=== PATIENT | female | born 1990 | race Caucasian/White ===

== ENCOUNTER → 2018-01-15 | Outpatient (CLI) | payer OTHER ==
[~2018-01-15] MED LIST: AMIT25 PO; AMIT75; AMOCLA500 PO; ARIP10 PO; CEPH500 PO; CHOL10002 PO; CIPR500 PO; CODGUAEL PO; Cleocin HCl150 MG PO; Cough Syru100 MG/5 M PO; ESTNOR PO; Esgic Tablet1 EACH PO; Estradiol0.5 MG PO; HYDACE5 PO; IBUP400 PO; IBUP800; IBUP800 PO; LORA10 PO; MEDR5 PO; METO25ER PO; METPRE4DP PO; Maxalt Mlt5 MG SL; Mobic7.5 MG PO; NAPR500 PO; NEOPOLHCSU OT; PARO20 PO; PENVK500 PO; PHENA100 PO; PRAZ1 PO; PROM25 PO; Pyridium100 MG PO; Pyridium200 MG PO; RXTRAM50 PO; SULTRIDS PO; TOPI100 PO; TRAM50 PO; VENL25 PO; Zofran Odt4 MG PO; Zofran Odt4 MG SL
[2018-01-16 01:31] LABS: Source VAG/CERVIX
== END | disposition home or self-care (01) ==
LOC: LAB 10:27
PROVIDERS: Obstetrics & Gynecology
DX: Z01.419 Encounter for gynecological examination (general) (routine) without abnormal findings (principal)
CPT/HCPCS: G0123

== ENCOUNTER → 2020-02-15 | Outpatient (CLI) | payer OTHER ==
[2020-02-17 14:08] LABS: HPV 16 Negative (Negative); HPV 18 Negative (Negative); HPV OTHER HR TYPES Negative (Negative)
== END | disposition home or self-care (01) ==
LOC: LAB 10:45 → LAB SHORT 10:45
PROVIDERS: Obstetrics & Gynecology
DX: Z01.419 Encounter for gynecological examination (general) (routine) without abnormal findings (principal)
CPT/HCPCS: 87624; G0123

== ENCOUNTER → 2021-12-03 | Outpatient (CLI) | payer OTHER ==
[2021-12-03 14:32] LABS: Source, Urine Clean Catch
[2021-12-03 15:08] LABS: Appearance, Urine Clear (Clear); Bilirubin, Urine Neg (Neg); Blood, Urine 2+ (Neg); Color, Urine Yellow (P-Yellow); Glucose Qualitative, Urine Neg (Neg); Ketones, Urine Neg (Neg); Leukocyte Esterase, Urine 1+ (Neg); Nitrite, Urine Neg (Neg); Protein, Urine Neg (Neg); Urobilinogen, Urine NORM (Normal)
[2021-12-03 15:20] LABS: Bacteria Mod /hpf; Squamous Epithelial Cells Few /hpf (Few)
== END | disposition home or self-care (01) ==
LOC: LAB SHORT 13:53
PROVIDERS: Obstetrics & Gynecology
DX: R35.0 Frequency of micturition (principal)
CPT/HCPCS: 81001; 87077; 87086; 87186

== ENCOUNTER 2022-11-10 18:11 | Inpatient (IN) | payer OTHER ==
[~2022-11-10] VITALS: Ht 162.6 cm; Wt 118.9 kg
[~2022-11-10 18:11] MED LIST changes: -VENL25 PO; +VENL75ER PO
[2022-11-10 18:53] LABS: BASOPHILS ABSOLUTE AUTO 0.05 K/mm3 (0.00-0.23); BASOPHILS PERCENT AUTO 0 % (0-2); EOSINOPHILS ABSOLUTE AUTO 0.01 K/mm3 (0.00-0.68); EOSINOPHILS PERCENT AUTO 0 % (0-6); Hematocrit 38.6 % (33.0-51.0); Hemoglobin 12.9 g/dL (11.5-16.0); IMMATURE GRAN ABSOLUTE AUTO 0.17 K/mm3 (0.00-0.10); IMMATURE GRAN PERCENT AUTO 1 % (0-1); LYMPHOCYTES ABSOLUTE AUTO 1.21 K/mm3 (0.84-5.20); LYMPHOCYTES PERCENT AUTO 6 % (21-46); MONOCYTES ABSOLUTE AUTO 0.88 K/mm3 (0.16-1.47); MONOCYTES PERCENT AUTO 4 % (4-13); Mean Corpuscular HGB 27.4 pg (26.0-34.0); Mean Corpuscular HGB Conc 33.4 g/dL (31.5-36.5); Mean Corpuscular Volume 82 fL (80-100); Mean Platelet Volume 9.4 fL (9.1-12.4); NEUTROPHILS ABSOLUTE AUTO 19.82 K/mm3 (1.96-9.15); NEUTROPHILS PERCENT AUTO 90 % (41-73); Platelet Count 274 K/mm3 (150-400); RDW Coefficient Variation 13.5 % (11.7-14.2); RDW Standard Deviation 40.6 fL (35.1-46.3); White Blood Cell Count 22.14 K/mm3 (4.00-11.30)
[2022-11-10 19:06] LABS: Albumin, Blood 2.8 g/dL (3.4-5.0); Albumin/Globulin Ratio 0.6 (0.8-1.8); Bilirubin, Total 1.2 mg/dL (0.1-1.0); Bun/Creatinine Ratio 12.3 (12.0-20.0); Calcium, Blood 8.6 mg/dL (8.5-10.1); Creatinine, Blood 0.65 mg/dL (0.40-1.00); Globulin, Blood 4.8 g/dL (2.2-4.0); Potassium, Blood 3.8 mmol/L (3.5-5.5); Total Protein, Blood 7.6 g/dL (6.4-8.2)
--- NOTE | 2022-11-11 02:02 | NUR ---
CARE ASSUMPTION: PATIENT ARRIVED BY GURNEY AND WAS SLID TO PCU BED WITH 5 STAFF ASSIST. PATIENT CANNOT BEAR WEIGHT ON BLE WITHOUT PAIN. PATIENT STATED SHE HAD TO URINATE UPON ADMIT - BEDPAN PROVIDED. PATIENT'S VS WNL. DENIES SOB/CHEST PAIN/N/V/D. STATES SHE HAS BEEN TOO TIRED TO EAT THE LAST COUPLE DAYS. FLUIDS RUNNING PER EMAR. ADMISSION HX AND ASSESSMENT COMPLETE. PATIENT LIVES ALONE AND HAS BEEN SELF-TREATING LEG ULCERS AT HOME FOR >2 MONTHS. PRESENTS WITH MILD COGNITIVE DELAY AND POOR HYGIENE - SS CONSULT ORDERED. MOTHER NOT PRESENT ON ADMIT, BUT PATIENT STATES SHE LIVES IN AREA AND IS THE ONE WHO BROUGHT HER TO ED. BLE RAISED, BED LOW, CALL LIGHT IN REACH.
--- NOTE | 2022-11-11 05:36 | NUR ---
SHIFT SUMMARY: PATIENT SYS BP 90-110S, MAP >65, AFEBRILE. DENIES SOB/N/V/D. WOUNDS CLEANSED AND OPEN TO AIR - WOUND CONSULT ORDERED. PLEASANT AND COOPERATIVE WITH CARE. NEEDS FREQUENT EDUCATION R/T PERSONAL CARE, CALL LIGHT, AND UNIT PROTOCOL. CONTINENT-INCONTINENT. PROVIDED BED BATH AND LINEN CHANGE THIS AM - PATIENT CAN ASSIST WITH REPOSITIONING THOUGH IT IS UNCOMFORTABLE FOR HER. MEDICATED PER EMAR. NO ADVERSE EVENTS THIS SHIFT. BED LOW WITH CALL LIGHT IN REACH. WILL CONTINUE TO MONITOR UNTIL REPORT TO DAY RN.
[2022-11-11 06:07] LABS: BASOPHILS ABSOLUTE AUTO 0.03 K/mm3 (0.00-0.23); BASOPHILS PERCENT AUTO 0 % (0-2); EOSINOPHILS ABSOLUTE AUTO 0.03 K/mm3 (0.00-0.68); EOSINOPHILS PERCENT AUTO 0 % (0-6); Hematocrit 36.9 % (33.0-51.0); Hemoglobin 11.9 g/dL (11.5-16.0); IMMATURE GRAN ABSOLUTE AUTO 0.08 K/mm3 (0.00-0.10); IMMATURE GRAN PERCENT AUTO 1 % (0-1); LYMPHOCYTES ABSOLUTE AUTO 0.78 K/mm3 (0.84-5.20); LYMPHOCYTES PERCENT AUTO 5 % (21-46); MONOCYTES ABSOLUTE AUTO 0.89 K/mm3 (0.16-1.47); MONOCYTES PERCENT AUTO 6 % (4-13); Mean Corpuscular HGB 27.1 pg (26.0-34.0); Mean Corpuscular HGB Conc 32.2 g/dL (31.5-36.5); Mean Corpuscular Volume 84 fL (80-100); Mean Platelet Volume 9.3 fL (9.1-12.4); NEUTROPHILS ABSOLUTE AUTO 12.83 K/mm3 (1.96-9.15); NEUTROPHILS PERCENT AUTO 88 % (41-73); Platelet Count 221 K/mm3 (150-400); RDW Coefficient Variation 13.6 % (11.7-14.2); RDW Standard Deviation 42.6 fL (35.1-46.3); Red Blood Cell Count 4.39 M/mm3 (3.80-5.20); White Blood Cell Count 14.64 K/mm3 (4.00-11.30)
[2022-11-11 06:44] LABS: Albumin, Blood 2.4 g/dL (3.4-5.0); Albumin/Globulin Ratio 0.6 (0.8-1.8); Bilirubin, Total 1.2 mg/dL (0.1-1.0); Bun/Creatinine Ratio 12.7 (12.0-20.0); Calcium, Blood 8.4 mg/dL (8.5-10.1); Creatinine, Blood 0.63 mg/dL (0.40-1.00); Globulin, Blood 4.2 g/dL (2.2-4.0); Potassium, Blood 3.4 mmol/L (3.5-5.5); Total Protein, Blood 6.6 g/dL (6.4-8.2)
--- NOTE | 2022-11-11 10:31 | NUR ---
WOUND CARE WOUND PHOTOS AND ASSESSMENT IN HARD CHART. WOUND CARE ORDERS IN [facility]. PT WOULD BENEFIT FROM FOLLOW UP AT OR WITH HH ON DISCHARGE FOR RLE WOUND
[2022-11-11 16:16] LABS: Source, Urine Clean Catch
[2022-11-11 16:51] LABS: Appearance, Urine Cloudy (Clear); Blood, Urine 1+ (Neg); Color, Urine Yellow (P-Yellow); Glucose Qualitative, Urine Neg (Neg); Ketones, Urine Neg (Neg); Leukocyte Esterase, Urine 1+ (Neg); Nitrite, Urine Neg (Neg); Protein, Urine 2+ (Neg); Urobilinogen, Urine 4+ (Normal)
[2022-11-11 17:03] LABS: Bilirubin, Urine 1+ (Neg)
[2022-11-11 17:10] LABS: Red Blood Cells, Urine 0-2 /hpf (0-2)
[2022-11-11 17:11] LABS: Bacteria Many /hpf; Other Crystals Many /hpf; Squamous Epithelial Cells Few /hpf (Few); Transitional Epithelial Cells Rare /hpf (0-Rare)
--- NOTE | 2022-11-11 18:47 | NUR ---
ASSUMED CARE OF PT AT 0700 TODAY. SILK WASHING MACHINE OPERATOR AT BEDSIDE TO EVALUATE BLEs, ORDERS PLACED IN CHART FOR WOUND CARE. PT HAS BEEN ALERT AND ORIENTED, ALTHOUGH MENTATION SEEMS DELAYED, FAMILY AT BEDSIDE STATES SHE IS AT BASELINE. SEE DOCUMENTED VS AND ASSESSMENT. NO CHANGES NOTED T/O THE SHIFT TO PT'S CONDITION. UA SENT TO LAB PER MD ORDERS. PT IS ABLE TO USE CALL LIGHT FOR NEEDS, CALL LIGHT IN REACH AT THIS TIME. WILL CONTINUE TO MONITOR AND GIVE REPORT TO NOC SHIFT RN.
[2022-11-11 21:51] LABS: Vancomycin, Trough 13.9 ug/mL (5.0-10.0)
--- NOTE | 2022-11-11 22:03 | NUR ---
CARE ASSUMPTION: PATIENT ASLEEP AT START OF SHIFT, TEMP 100.1*F, TACHYCARDIC AND TACHYPENIC, BP WNL, O2 >95% ON RA. PATIENT REMEBERED THIS RN FROM PREVIOUS NOC SHIFT. USES CALL LIGHT APPROPRIATELY. MEDICATED PER EMAR. BED LOW WITH CALL LIGHT IN REACH.
[2022-11-12 04:07] LABS: Hematocrit 34.9 % (33.0-51.0); Hemoglobin 11.4 g/dL (11.5-16.0); Mean Corpuscular HGB 27.4 pg (26.0-34.0); Mean Corpuscular HGB Conc 32.7 g/dL (31.5-36.5); Mean Corpuscular Volume 84 fL (80-100); Mean Platelet Volume 9.6 fL (9.1-12.4); Platelet Count 219 K/mm3 (150-400); RDW Coefficient Variation 13.8 % (11.7-14.2); RDW Standard Deviation 42.6 fL (35.1-46.3); Red Blood Cell Count 4.16 M/mm3 (3.80-5.20); White Blood Cell Count 11.42 K/mm3 (4.00-11.30)
[2022-11-12 04:27] LABS: Anion Gap 6 mmol/L (6-16); Blood Urea Nitrogen 7 mg/dL (8-24); Bun/Creatinine Ratio 12.6 (12.0-20.0); CO2, Blood 26 mmol/L (21-32); Calcium, Blood 8.4 mg/dL (8.5-10.1); Chloride, Blood 106 mmol/L (98-108); Creatinine, Blood 0.56 mg/dL (0.40-1.00); Glomerular Filtration Rate 124 (60-); Glucose, Blood 119 mg/dL (70-99); Phosphorus, Blood 2.9 mg/dL (2.5-4.9); Sodium, Blood 138 mmol/L (136-145)
--- NOTE | 2022-11-12 07:14 | NUR ---
SHIFT SUMMARY: PATIENT VS WNL, DENIES SOB/CHEST PAIN/N/V, USES CALL LIGHT INTERMITTENTLY. CONTINENT/INCONTINENT - LINEN CHANGE X1 THIS SHIFT. PLEASANT AND COOPERATIVE WITH CARE. MEDICATED PER EMAR. BED LOW WITH CALL LIGHT IN REACH. REPORT GIVEN TO DAY RN.
--- NOTE | 2022-11-12 10:14 | NUR ---
MEDICATION REC. NOTE SEE EMAR FOR MEDICATIONS D/C'D TODAY. MEDICATIONS D/C'D DUE TO PT REPORTING THAT SHE NO LONGER TAKES MEDICATIONS AT HOME, THIS NURSE SPOKE W/ DR. CHIN AND DR. OSEGUERA TO D/C MEDS.
--- NOTE | 2022-11-12 12:09 | NUR ---
CARE NOTE-EDWIN CARE/WOUND CARE PT REFUSED BEDBATH AND LINNEN CHANGE. THIS NURSE ENCOURAGED PT TO ALLOW HYGIENE CARE DUE TO EPISODES OF INCONTINENCE AND BEDREST STATUS BUT PT REPORTED NOT WANTING TO PARTICIPATE. THIS NURSE PERFORMED EDWIN CARE AND APPLIED POWDER TO EDWIN AREA. DRESSING ON RIGHT LEG ALSO CHANGED PER WOUND CARE ORDERS. LEG IS ELEVATED ON PILLOW. PT NOW EATING LUNCH. CALL LIGHT IS IN REACH.
--- NOTE | 2022-11-12 17:43 | NUR ---
SHIFT SUMMARY PT IS ALERT AND ORIENTED X 4, SHE IS ABLE TO MAKE HER NEEDS KNOWN. VSS, SPO2 >95% VIA ROOM AIR. SHE HAS DENIED FEELINGS OF NAUSEA, SHE HAS DENIED CHEST PAIN/PRESSURE, PAIN REPORTED IN RIGHT LOWER EXTREMETY THAT IS INCREASED W/ MOVEMENT. NO COUGH NOTED. SHE IS ABLE TO SHIFT POSITION IN BED. DRESSING ON RIGHT LOWER EXTREMETY CHANGED PER EMAR ORDERS BY THIS RN AND LEG HAS BEEN ELEVATED ON PILLOWS. SEE CHART FOR WOUND PHOTOS. PT HAS USED BEDPAN TO VOID T/O SHIFT UNTIL LASIX ADMINISTERED PER EMAR ORDERS, THEN PURWICK WAS PLACED BY THIS RN. PT HAS BEEN SOMNOLENT IN BETWEEN PATIENT CARE AND NEEDS MUCH ENCOURAGEMENT FOR ACTIVITY WELL CERTAIN PT CARE SUCH W/ HYGIENE. SHE REFUSED A BEDBATH TODAY. IV IN RIGHT FOREARM IS INFUSING TKO PER EMAR ORDERS. NO OTHER ACUTE CHANGES NOTED. PT IS NOW EATING DINNER IN BED. CALL LIGHT IN REACH. WILL CONTINUE TO MONITOR UNTIL REPORT GIVEN.
[2022-11-12 22:22] LABS: Vancomycin, Trough 23.5 ug/mL (5.0-10.0)
--- NOTE | 2022-11-12 22:37 | NUR ---
CRITICAL VALUE: VANCO TROUGH 23.5. SPOKE WITH PHARMACIST MARA CEJA. PLAN TO HOLD VANCOCIN TONIGHT AND RESTART AT A SLOWER RATE IN THE AM.
--- NOTE | 2022-11-12 22:49 | NUR ---
CARE ASSUMPTION: PATIENT OUT OF ROOM IN WHEELCHAIR AT CAFE AT START OF SHIFT. PATIENT WAS ABLE TO STAND AND PIVOT BACK TO BED. VS WNL ON RA. SISTER AT BEDSIDE. NEW PUREWICK PLACED PER PROTOCOL AND DRAINING TO SUCTION. WOUND DRESSING C/D/I. LLE OPEN TO AIR. MEDICATED PER EMAR - SEE CRITICAL VALUE NOTE. BED LOW WITH CALL LIGHTIN REACH.
--- NOTE | 2022-11-13 06:03 | NUR ---
SHIFT SUMMARY: PATIENT VS WNL, IMPROVED EDEMA AND ROM WITH BLES. MED TELE STATUS. NS TKO INFUSING IV OCCLUDES WHEN DISCONNECTED FROM TKO AND PATIENT IS "TERRIFIED" OF NEEDLES. GOAL IS TO PRESERVE IV LINE SHE IS A DIFFICULT STICK. PATIENT REFUSED BED BATH ON DAY SHIFT AND THIS SHIFT STATING SHE DOESN'T NEED TO BATHE EVERY TWO DAYS AND THAT SHE USES WET WIPES AT HOME TO CLEANSE. PATIENT SLEPT >8 HRS THIS SHIFT. 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 PATIENT REFUSED 0430 LAB DRAW STATING, "THIS IS BULLSHIT." LAB WAS PERMITTED TO DRAW AT 0600. PUREWICK IN PLACE CHANGED AT 0530 PER PROTOCOL. PATIENT REPOSITIONS SELF IN BED AND USES CALL LIGHT APPROPRIATELY. NO ADVERSE EVENTS THIS SHIFT. BED LOW WITH CALL LIGHT IN REACH. WILL CONTINUE TO MONITOR UNTIL REPORT TO DAY RN.
[2022-11-13 06:20] LABS: BASOPHILS ABSOLUTE AUTO 0.07 K/mm3 (0.00-0.23); BASOPHILS PERCENT AUTO 1 % (0-2); EOSINOPHILS ABSOLUTE AUTO 0.62 K/mm3 (0.00-0.68); EOSINOPHILS PERCENT AUTO 6 % (0-6); Hematocrit 38.4 % (33.0-51.0); Hemoglobin 12.3 g/dL (11.5-16.0); IMMATURE GRAN ABSOLUTE AUTO 0.09 K/mm3 (0.00-0.10); IMMATURE GRAN PERCENT AUTO 1 % (0-1); LYMPHOCYTES ABSOLUTE AUTO 2.03 K/mm3 (0.84-5.20); LYMPHOCYTES PERCENT AUTO 19 % (21-46); MONOCYTES ABSOLUTE AUTO 0.75 K/mm3 (0.16-1.47); MONOCYTES PERCENT AUTO 7 % (4-13); Mean Corpuscular HGB 27.1 pg (26.0-34.0); Mean Corpuscular Volume 85 fL (80-100); Mean Platelet Volume 9.8 fL (9.1-12.4); NEUTROPHILS ABSOLUTE AUTO 6.98 K/mm3 (1.96-9.15); NEUTROPHILS PERCENT AUTO 66 % (41-73); Platelet Count 298 K/mm3 (150-400); RDW Coefficient Variation 13.6 % (11.7-14.2); RDW Standard Deviation 42.5 fL (35.1-46.3); Red Blood Cell Count 4.54 M/mm3 (3.80-5.20); White Blood Cell Count 10.54 K/mm3 (4.00-11.30)
[2022-11-13 06:49] LABS: Albumin, Blood 2.2 g/dL (3.4-5.0); Anion Gap 6 mmol/L (6-16); Blood Urea Nitrogen 11 mg/dL (8-24); Bun/Creatinine Ratio 16.6 (12.0-20.0); CO2, Blood 29 mmol/L (21-32); Calcium, Blood 8.9 mg/dL (8.5-10.1); Chloride, Blood 101 mmol/L (98-108); Creatinine, Blood 0.66 mg/dL (0.40-1.00); Glomerular Filtration Rate 119 (60-); Glucose, Blood 119 mg/dL (70-99); Phosphorus, Blood 4.5 mg/dL (2.5-4.9); Potassium, Blood 4.2 mmol/L (3.5-5.5); Sodium, Blood 136 mmol/L (136-145)
[2022-11-13 09:23] LABS: Vancomycin, Random 8.2 ug/mL
--- NOTE | 2022-11-13 18:23 | NUR ---
SHIFT SUMMARY PT HAS SLEP FOR MOST OF THE DAY. PT WAS DIFFICULT TO ROUSE AND UNHAPPY WITH STAFF EACH TIME THEY WERE AWOKEN. VITAL SIGNS HAVE BEEN STABLE, THERE HAVE BEEN NO ACUTE CHANGES IN PT CONDITION.
[2022-11-14 05:44] LABS: Albumin, Blood 2.2 g/dL (3.4-5.0); Anion Gap 5 mmol/L (6-16); Blood Urea Nitrogen 12 mg/dL (8-24); Bun/Creatinine Ratio 21.6 (12.0-20.0); CO2, Blood 33 mmol/L (21-32); Calcium, Blood 8.8 mg/dL (8.5-10.1); Chloride, Blood 98 mmol/L (98-108); Creatinine, Blood 0.56 mg/dL (0.40-1.00); Glomerular Filtration Rate 124 (60-); Glucose, Blood 113 mg/dL (70-99); Phosphorus, Blood 4.2 mg/dL (2.5-4.9); Potassium, Blood 4.1 mmol/L (3.5-5.5); Sodium, Blood 136 mmol/L (136-145)
--- NOTE | 2022-11-14 07:33 | NUR ---
SUMMARY PT HAD UNEVENTFUL NIGHT.PT SLEPT QUIETLY AND HOPING FOR DISCHARGE TODAY.
[2022-11-14 10:06] LABS: Vancomycin, Trough 18.7 ug/mL (5.0-10.0)
--- NOTE | 2022-11-14 17:18 | NUR ---
SHIFT SUMMARY/TRANSFER NOTE PT IS ALERT AND ORIENTED X 4, SHE IS ABLE TO MAKE HER NEEDS KNOWN. VSS, SHE WAS ON RA AND SP02>95%. SHE DENIED FEELINGS OF CP/PRESSURE AND NAUSEA. PAIN REPORTED IN R LOWER EXTREMETY W/ MOVEMENT, LEG ELEVATED ON PILLOW T/O SHIFT, SEE EMAR FOR PAIN MANAGEMENT. DRESSING OVER WOUND ON R LEG CHANGED BY THIS RN 11/14. PT IS SOMNOLENT BETWEEN PT CARE AND NEEDS MUCH ENCOURAGEMENT FOR CERTAIN PT CARE MEASURES SUCH W/ MOBILITY AND HYGIENE. SEE CHART FOR WOUND PHOTOS. REPORT GIVEN TO ESTEBAN VILLASEÑOR IN SURGICAL UNIT AND PT TRANSFERRED APPROX. 1710 TO ROOM 209, ALL OF HER BELONGINGS WERE TRANSFERRED WELL. PURWICK WAS USED DURING SHIFT FOR PT TO VOID AND SHE WAS A SBA, PIVOT TO CHAIR.
--- NOTE | 2022-11-14 17:56 | NUR ---
1720 TO ROOM VIA BED, ALERT AND COOPERATIVE, PT ASKING FOR HER COOLER FULL OF SNACKS. PT DENIES ANY NEEDS AT THIS TIME. RLE DRY AND INTACT, LLE RED WITH FLAKING DRY SKIN. PT REPORTS LITTLE PAIN AT THIS TIME AND REQUESTING DINNER. CALL LIGHT IN REACH
--- NOTE | 2022-11-15 05:28 | NUR ---
SOAKING PITS SUPERVISOR SUMMARY NO ACUTE CHANGES THIS SHIFT. PT AAOX4 AND PLEASANT. UP TO BSC WITH 1 ASSIST. R LEG PAIN MANAGED WITH SCHEDULED ULTRAM. PT HAS RESTED MOST OF THE NIGHT WITH NO COMPLAINTS. VSS, WILL CONTINUE TO MONITOR.
[2022-11-15] MEDS ORDERED: MICO100S TOP (12:35)
[2022-11-15] MEDS ORDERED: VISBIOME 112.51 EACH PO (12:36)
[2022-11-15] MEDS ORDERED: CEPH500 PO (12:36)
--- NOTE | 2022-11-15 13:37 | NUR ---
DISCHARGE DRESSING CHANGED THIS MORNING WITH DR. CHIN. EXTRA SUPPLIES SENT HOME WITH PATIENT. WENT OVER INSTRUCTIONS FOR WOUND CARE AND DRESSING CHANGES WITH MOTHER AND PATIENT. PATIENT PLANS TO ESTABLISH WITH A PCP ON DISCHARGE. PRESCRIPTIONS SENT TO [facility]. POWERGLIDE REMOVED WNL. PT DENIES FURTHER QUESTIONS. ESCORTED OUT WITH WHEELCHAIR.
== END 2022-11-15 14:00 | disposition home or self-care (01) | DRG 872 ==
LOC: ER 18:11 → PCU 23:37 → SURS 11-14 17:18
PROVIDERS: Family Medicine; Internal Medicine; Student in an Organized Health Care Education/Training Program; ADMIT Student in an Organized Health Care Education/Training Program
DX: A41.9 Sepsis, unspecified organism (principal); L03.115 Cellulitis of right lower limb; L03.116 Cellulitis of left lower limb; E87.1 Hypo-osmolality and hyponatremia; E87.20 Acidosis, unspecified; L97.829 Non-pressure chronic ulcer of other part of left lower leg with unspecified severity; L97.819 Non-pressure chronic ulcer of other part of right lower leg with unspecified severity; Z68.41 Body mass index [BMI] 40.0-44.9, adult; R65.20 Severe sepsis without septic shock; I10 Essential (primary) hypertension; G43.909 Migraine, unspecified, not intractable, without status migrainosus; F43.10 Post-traumatic stress disorder, unspecified; F41.9 Anxiety disorder, unspecified; F31.9 Bipolar disorder, unspecified; E66.9 Obesity, unspecified; E87.6 Hypokalemia; R73.03 Prediabetes; I87.8 Other specified disorders of veins; S80.862A Insect bite (nonvenomous), left lower leg, initial encounter; S80.861A Insect bite (nonvenomous), right lower leg, initial encounter; B96.89 Other specified bacterial agents as the cause of diseases classified elsewhere; Z88.8 Allergy status to other drugs, medicaments and biological substances; Z79.899 Other long term (current) drug therapy; Z79.891 Long term (current) use of opiate analgesic
CPT/HCPCS: 36415; 80053; 80069; 80202; 81001; 83036; 83605; 85025; 85027; 87040; 87086; 93005; 93010; 93306; 96365; 96366; 96375; 97110; 97116; 97162; 97530; 99285-25; A9270; J0696; J1885; J1940; J3370; J7030; J7050

== ENCOUNTER 2022-12-09 18:03 | Emergency (ER) | payer OTHER ==
[~2022-12-09] VITALS: Ht 162.6 cm; Wt 116.6 kg
[~2022-12-09 18:03] MED LIST changes: +MICO100S TOP; +VISBIOME 112.51 EACH PO
[2022-12-10 00:52] LABS: BASOPHILS ABSOLUTE AUTO 0.08 K/mm3 (0.00-0.23); BASOPHILS PERCENT AUTO 1 % (0-2); EOSINOPHILS PERCENT AUTO 11 % (0-6); Hematocrit 37.1 % (33.0-51.0); Hemoglobin 12.1 g/dL (11.5-16.0); IMMATURE GRAN ABSOLUTE AUTO 0.02 K/mm3 (0.00-0.10); IMMATURE GRAN PERCENT AUTO 0 % (0-1); LYMPHOCYTES ABSOLUTE AUTO 2.75 K/mm3 (0.84-5.20); LYMPHOCYTES PERCENT AUTO 31 % (21-46); MONOCYTES PERCENT AUTO 6 % (4-13); Mean Corpuscular HGB 27.3 pg (26.0-34.0); Mean Corpuscular HGB Conc 32.6 g/dL (31.5-36.5); Mean Corpuscular Volume 84 fL (80-100); Mean Platelet Volume 9.5 fL (9.1-12.4); NEUTROPHILS ABSOLUTE AUTO 4.51 K/mm3 (1.96-9.15); NEUTROPHILS PERCENT AUTO 51 % (41-73); Platelet Count 284 K/mm3 (150-400); RDW Coefficient Variation 13.8 % (11.7-14.2); RDW Standard Deviation 42.3 fL (35.1-46.3); Red Blood Cell Count 4.44 M/mm3 (3.80-5.20); White Blood Cell Count 8.86 K/mm3 (4.00-11.30)
[2022-12-10 01:31] LABS: Albumin, Blood 2.8 g/dL (3.4-5.0); Albumin/Globulin Ratio 0.6 (0.8-1.8); Bilirubin, Total 0.4 mg/dL (0.1-1.0); Bun/Creatinine Ratio 18.1 (12.0-20.0); Calcium, Blood 8.3 mg/dL (8.5-10.1); Creatinine, Blood 0.55 mg/dL (0.40-1.00); Globulin, Blood 4.7 g/dL (2.2-4.0); Potassium, Blood 4.6 mmol/L (3.5-5.5); Total Protein, Blood 7.5 g/dL (6.4-8.2)
== END 2022-12-10 02:40 | disposition home or self-care (01) ==
LOC: ER 18:03
PROVIDERS: Student in an Organized Health Care Education/Training Program
DX: L03.115 Cellulitis of right lower limb (principal); L03.116 Cellulitis of left lower limb; I10 Essential (primary) hypertension; Z79.899 Other long term (current) drug therapy
CPT/HCPCS: 36415; 80053; 85025; 99283; A9270

== ENCOUNTER 2022-12-18 03:36 | Day surgery (SDC) | payer OTHER | END 2022-12-18 23:18 | disposition home or self-care (01) | LOC: WOUND 03:36 | DX: I87.2 Venous insufficiency (chronic) (peripheral) (principal); S81.802A Unspecified open wound, left lower leg, initial encounter; S81.801A Unspecified open wound, right lower leg, initial encounter; I10 Essential (primary) hypertension | CPT/HCPCS: A9270 ==

== ENCOUNTER 2022-12-25 02:40 | Day surgery (SDC) | payer OTHER | END 2022-12-25 22:52 | disposition home or self-care (01) | LOC: WOUND 02:40 | DX: I87.2 Venous insufficiency (chronic) (peripheral) (principal); S81.802A Unspecified open wound, left lower leg, initial encounter; S81.801A Unspecified open wound, right lower leg, initial encounter; I10 Essential (primary) hypertension ==

== ENCOUNTER 2023-01-01 03:37 | Day surgery (SDC) | payer OTHER | END 2023-01-01 22:38 | disposition home or self-care (01) | LOC: WOUND 03:37 | DX: I87.313 Chronic venous hypertension (idiopathic) with ulcer of bilateral lower extremity (principal); I87.2 Venous insufficiency (chronic) (peripheral); L97.211 Non-pressure chronic ulcer of right calf limited to breakdown of skin; L97.221 Non-pressure chronic ulcer of left calf limited to breakdown of skin; I73.9 Peripheral vascular disease, unspecified; I10 Essential (primary) hypertension; S81.802D Unspecified open wound, left lower leg, subsequent encounter; S81.801D Unspecified open wound, right lower leg, subsequent encounter; X58.XXXD Exposure to other specified factors, subsequent encounter | CPT/HCPCS: G0463 ==

== ENCOUNTER 2023-09-17 04:04 | Day surgery (SDC) | payer OTHER | END 2023-09-17 22:37 | disposition home or self-care (01) | LOC: WOUND 04:04 | DX: I87.313 Chronic venous hypertension (idiopathic) with ulcer of bilateral lower extremity (principal); L97.211 Non-pressure chronic ulcer of right calf limited to breakdown of skin; L97.221 Non-pressure chronic ulcer of left calf limited to breakdown of skin; L03.116 Cellulitis of left lower limb; L03.115 Cellulitis of right lower limb; I87.2 Venous insufficiency (chronic) (peripheral); I73.9 Peripheral vascular disease, unspecified; I10 Essential (primary) hypertension; J45.909 Unspecified asthma, uncomplicated; G47.30 Sleep apnea, unspecified; Z88.8 Allergy status to other drugs, medicaments and biological substances | CPT/HCPCS: G0463 ==

== ENCOUNTER 2023-09-25 01:52 | Day surgery (SDC) | payer OTHER | END 2023-09-25 22:45 | disposition home or self-care (01) | LOC: WOUND 01:52 | DX: I87.313 Chronic venous hypertension (idiopathic) with ulcer of bilateral lower extremity (principal); L97.211 Non-pressure chronic ulcer of right calf limited to breakdown of skin; L97.221 Non-pressure chronic ulcer of left calf limited to breakdown of skin; I87.2 Venous insufficiency (chronic) (peripheral); I73.9 Peripheral vascular disease, unspecified; I10 Essential (primary) hypertension | CPT/HCPCS: G0463 ==

== ENCOUNTER 2023-10-02 03:04 | Day surgery (SDC) | payer OTHER | END 2023-10-02 22:35 | disposition home or self-care (01) | LOC: WOUND 03:04 | DX: I87.313 Chronic venous hypertension (idiopathic) with ulcer of bilateral lower extremity (principal); L97.211 Non-pressure chronic ulcer of right calf limited to breakdown of skin; L97.221 Non-pressure chronic ulcer of left calf limited to breakdown of skin; I87.2 Venous insufficiency (chronic) (peripheral); I73.9 Peripheral vascular disease, unspecified; I10 Essential (primary) hypertension | CPT/HCPCS: G0463 ==

== ENCOUNTER 2023-10-16 03:53 | Day surgery (SDC) | payer OTHER | END 2023-10-16 22:48 | disposition home or self-care (01) | LOC: WOUND 03:53 | DX: I87.313 Chronic venous hypertension (idiopathic) with ulcer of bilateral lower extremity (principal); L03.116 Cellulitis of left lower limb; L03.115 Cellulitis of right lower limb; L97.211 Non-pressure chronic ulcer of right calf limited to breakdown of skin; L97.221 Non-pressure chronic ulcer of left calf limited to breakdown of skin; I10 Essential (primary) hypertension; R73.03 Prediabetes; I73.9 Peripheral vascular disease, unspecified | CPT/HCPCS: A9270 ==

== ENCOUNTER 2023-10-23 03:04 | Day surgery (SDC) | payer OTHER | END 2023-10-23 23:00 | disposition home or self-care (01) | LOC: WOUND 03:04 | DX: Z09 Encounter for follow-up examination after completed treatment for conditions other than malignant neoplasm (principal); I10 Essential (primary) hypertension; G47.00 Insomnia, unspecified | CPT/HCPCS: G0463 ==

== ENCOUNTER 2023-11-30 03:27 | Day surgery (SDC) | payer OTHER ==
[2023-11-30] MEDS ORDERED: Lidocaine HCl 4% Topical Soln 50 ML BTL ONE (08:11)
== END 2023-11-30 22:57 | disposition home or self-care (01) ==
LOC: WOUND 03:27
DX: I89.0 Lymphedema, not elsewhere classified (principal); I87.313 Chronic venous hypertension (idiopathic) with ulcer of bilateral lower extremity; L97.211 Non-pressure chronic ulcer of right calf limited to breakdown of skin; L97.221 Non-pressure chronic ulcer of left calf limited to breakdown of skin; I87.2 Venous insufficiency (chronic) (peripheral); I73.9 Peripheral vascular disease, unspecified; I10 Essential (primary) hypertension; G47.30 Sleep apnea, unspecified
CPT/HCPCS: G0463

== ENCOUNTER 2023-12-02 02:01 | Day surgery (SDC) | payer OTHER | END 2023-12-02 23:17 | disposition home or self-care (01) | LOC: WOUND 02:01 | DX: I87.313 Chronic venous hypertension (idiopathic) with ulcer of bilateral lower extremity (principal); L97.222 Non-pressure chronic ulcer of left calf with fat layer exposed; L97.212 Non-pressure chronic ulcer of right calf with fat layer exposed; I73.9 Peripheral vascular disease, unspecified; I10 Essential (primary) hypertension | CPT/HCPCS: G0463 ==

== ENCOUNTER 2023-12-07 03:40 | Day surgery (SDC) | payer OTHER | END 2023-12-07 22:51 | disposition home or self-care (01) | LOC: WOUND 03:40 | DX: I87.313 Chronic venous hypertension (idiopathic) with ulcer of bilateral lower extremity (principal); I89.0 Lymphedema, not elsewhere classified; L97.222 Non-pressure chronic ulcer of left calf with fat layer exposed; L97.212 Non-pressure chronic ulcer of right calf with fat layer exposed; I73.9 Peripheral vascular disease, unspecified; I10 Essential (primary) hypertension; G47.30 Sleep apnea, unspecified | CPT/HCPCS: A9270; G0463 ==

== ENCOUNTER 2023-12-09 02:39 | Day surgery (SDC) | payer OTHER | END 2023-12-09 22:54 | disposition home or self-care (01) | LOC: WOUND 02:39 | DX: I87.313 Chronic venous hypertension (idiopathic) with ulcer of bilateral lower extremity (principal); L97.222 Non-pressure chronic ulcer of left calf with fat layer exposed; L97.212 Non-pressure chronic ulcer of right calf with fat layer exposed; I73.9 Peripheral vascular disease, unspecified; I10 Essential (primary) hypertension | CPT/HCPCS: G0463 ==

== ENCOUNTER 2023-12-11 00:17 | Day surgery (SDC) | payer OTHER | END 2023-12-11 23:28 | disposition home or self-care (01) | LOC: WOUND 00:17 | DX: I87.313 Chronic venous hypertension (idiopathic) with ulcer of bilateral lower extremity (principal); L97.222 Non-pressure chronic ulcer of left calf with fat layer exposed; L97.212 Non-pressure chronic ulcer of right calf with fat layer exposed; I73.9 Peripheral vascular disease, unspecified; I10 Essential (primary) hypertension | CPT/HCPCS: G0463 ==

== ENCOUNTER 2023-12-14 03:26 | Day surgery (SDC) | payer OTHER | END 2023-12-14 23:34 | disposition home or self-care (01) | LOC: WOUND 03:26 | DX: I89.0 Lymphedema, not elsewhere classified (principal); I10 Essential (primary) hypertension; L97.222 Non-pressure chronic ulcer of left calf with fat layer exposed; L97.212 Non-pressure chronic ulcer of right calf with fat layer exposed; I87.313 Chronic venous hypertension (idiopathic) with ulcer of bilateral lower extremity; I87.2 Venous insufficiency (chronic) (peripheral); I73.9 Peripheral vascular disease, unspecified | CPT/HCPCS: G0463 ==

== ENCOUNTER 2023-12-21 02:16 | Day surgery (SDC) | payer OTHER | END 2023-12-21 23:04 | disposition home or self-care (01) | LOC: WOUND 02:16 | DX: I89.0 Lymphedema, not elsewhere classified (principal); I10 Essential (primary) hypertension; G47.30 Sleep apnea, unspecified; L97.222 Non-pressure chronic ulcer of left calf with fat layer exposed; L97.212 Non-pressure chronic ulcer of right calf with fat layer exposed; I87.313 Chronic venous hypertension (idiopathic) with ulcer of bilateral lower extremity; I87.2 Venous insufficiency (chronic) (peripheral); I73.9 Peripheral vascular disease, unspecified ==

== ENCOUNTER 2023-12-28 00:22 | Day surgery (SDC) | payer OTHER ==
[2023-12-28] MEDS ORDERED: Triamcinolone Acet 0.1% Cream 15 gm ONE (13:32)
== END 2023-12-28 23:44 | disposition home or self-care (01) ==
LOC: WOUND 00:22
DX: I89.0 Lymphedema, not elsewhere classified (principal); L97.222 Non-pressure chronic ulcer of left calf with fat layer exposed; L97.212 Non-pressure chronic ulcer of right calf with fat layer exposed; I87.313 Chronic venous hypertension (idiopathic) with ulcer of bilateral lower extremity; I87.2 Venous insufficiency (chronic) (peripheral); I73.9 Peripheral vascular disease, unspecified; I10 Essential (primary) hypertension; G47.30 Sleep apnea, unspecified; R73.03 Prediabetes
CPT/HCPCS: A9270

== ENCOUNTER 2024-01-04 08:00 | Day surgery (SDC) | payer OTHER ==
[2024-01-04] MEDS ORDERED: Triamcinolone Acet 0.1% Cream 15 gm ONE (12:37)
== END 2024-01-04 22:43 | disposition home or self-care (01) ==
LOC: WOUND 08:00
DX: I87.313 Chronic venous hypertension (idiopathic) with ulcer of bilateral lower extremity (principal); L97.222 Non-pressure chronic ulcer of left calf with fat layer exposed; L97.212 Non-pressure chronic ulcer of right calf with fat layer exposed; I89.0 Lymphedema, not elsewhere classified; I87.2 Venous insufficiency (chronic) (peripheral); I73.9 Peripheral vascular disease, unspecified; I10 Essential (primary) hypertension; G47.30 Sleep apnea, unspecified
CPT/HCPCS: A9270

== ENCOUNTER 2024-01-11 08:00 | Day surgery (SDC) | payer OTHER | END 2024-01-12 22:35 | disposition home or self-care (01) | LOC: WOUND 08:00 | DX: I87.313 Chronic venous hypertension (idiopathic) with ulcer of bilateral lower extremity (principal); I89.0 Lymphedema, not elsewhere classified; L97.222 Non-pressure chronic ulcer of left calf with fat layer exposed; L97.212 Non-pressure chronic ulcer of right calf with fat layer exposed; I87.2 Venous insufficiency (chronic) (peripheral); I73.9 Peripheral vascular disease, unspecified; I10 Essential (primary) hypertension | CPT/HCPCS: G0463 ==